=== PATIENT | female | born 1935 | race Caucasian/White ===

== ENCOUNTER 2016-03-24 12:09 | Outpatient (CLI) | payer MEDICARE, OTHER ==
[~2016-03-24] VITALS: Ht 167.6 cm; Wt 54.5 kg
[~2016-03-24 12:09] MED LIST: CO Q-10100 MG PO; COREG 3.1253.125 MG PO; DEXILANT30 MG PO; ECOTRIN325 MG PO; ESTRACE2 MG PO; MYRBETRIQ50 MG PO; NAMENDA10 MG PO; PLAVIX75 MG PO; PRAVACHOL20 MG PO; REQUIP3 MG PO; SYNTHROID25 MCG PO; THERMOTABS 1 GM1 GM PO
[2016-03-24 13:17] VITALS: BP 130/68; Ht 167.6 cm; Wt 54.5 kg
--- NOTE | 2016-03-24 13:19 | NUR ---
1310- 60MG OF PROLIA GIVEN IN LEFT ARM LOT#[id number] EXP:02/06 PT TOLERATED WELL. PT DENIES ANY NEEDS OR CONCERNS AT THIS TIME. PT DISCHARGED HOME IN STABLE CONDITION @ 1320 WITHOUT ANY DISTRESS
== END 2016-03-24 13:20 | disposition home or self-care (01) ==
LOC: D.OPS 12:09
DX: M81.0 Age-related osteoporosis without current pathological fracture (principal)

== ENCOUNTER 2016-08-10 12:56 | Inpatient (IN) | payer MEDICARE, OTHER ==
[~2016-08-10] VITALS: Ht 167.6 cm; Wt 59.8 kg
--- NOTE | 2016-08-10 13:22 | NUR ---
1312- RECEIVED PT VIA WHEELCHAIR. WILL ADMIT PT AND CONTINUE TO MONITOR.
[2016-08-10] MEDS ORDERED: SYNTHROID50 MCG PO (13:37)
[2016-08-10] MEDS ORDERED: LISINOPRIL2.5 MG PO (13:38)
[2016-08-10] MEDS ORDERED: CO Q-10100 MG PO (13:38)
[2016-08-10 13:39] VITALS: BP 98/67
[2016-08-10 16:00] VITALS: BP 105/71
--- NOTE | 2016-08-10 16:36 | NUR ---
CALLED DR. WILBURN'S OFFICE TO INFORM HIM OF PT HAVING DIARRHEA WITH STRONG ODOR. AWAITNG DR. WILBURN TO ANSWER.
--- NOTE | 2016-08-10 16:46 | NUR ---
AWAITED FOR DR. WILBURN AND DR. WILBURN'S NURSE WITH NO ANSWER. WILL ATTEMPT TO CALL BACK.
--- NOTE | 2016-08-10 16:55 | NUR ---
CALLED DR. WILBURN OFFICE AND SPOKE WITH DR. WILBURN. INFORMED HIM THAT PT IS HAVING DIARRHEA WITH STRONG ODOR. DR. WILBURN GAVE TELEPHONE ORDERES TO PUT IN FOR CDT. WILL DO ORDERED AND CONTINUE TO ALBIN.
--- NOTE | 2016-08-10 17:44 | NUR ---
PT IS CURRENTLY SITTING UP IN BED READING BOOK. DENIES ANY NEED AT CURRENT TIME. WILL CONTINUE TO MONITOR.
--- NOTE | 2016-08-10 18:14 | NUR ---
PT IS CURRENTLY SITTING UP IN BED WITH EYES OPEN RESTING. DAUGHTER AND GUEST JUST GO TO UNIT. NO NEED AT CURRENT TIME. WILL CONTINUE TO MONITOR.
[2016-08-10 20:00] VITALS: BP 105/67
--- NOTE | 2016-08-10 20:48 | NUR ---
HS MEDS GIVEN, DENIES PAIN OR NEEDS, BED LOW, CL IN REACH.
--- NOTE | 2016-08-10 23:24 | NUR ---
RESTING WITH EYES CLOSED, RESPERATIONS EVEN, NO S/S DISTRESS NOTED.
[2016-08-11] VITALS: BP 108/65
[2016-08-11 04:00] VITALS: BP 110/69
[2016-08-11 05:11] LABS: BASOPHILS 0.1 % (0-2); EOSINOPHILS 0.7 % (0-7); HEMATOCRIT 34.7 % (36.0-48.0); IMMATURE GRANULOCYTES 0.4 % (0-5); LYMPHOCYTES 14.7 % (15-50); MCH 28.3 pg (26.0-34.0); MCHC 34.6 g/dL (31.0-37.0); MCV 81.8 fL (80.0-100.0); MEAN PLATELET VOLUME 9.2 fL (7.4-10.4); MONOCYTES 6.1 % (2-11); PLATELET COUNT 205 10x3/uL (130-400); RBC 4.24 10x6/uL (4.00-5.40); RDW 14.3 % (11.5-14.5); WBC 7.2 10x3/uL (4.8-10.8)
[2016-08-11 05:44] LABS: ANION GAP 10.5 mmol/L (8-16); CARBON DIOXIDE 23.6 mmol/L (21.0-32.0); POTASSIUM - SERUM 3.1 mmol/L (3.5-5.1)
[2016-08-11 05:46] LABS: CALCIUM 6.9 mg/dL (8.5-10.1)
--- NOTE | 2016-08-11 07:22 | NUR ---
AM ROUNDING DONE WITH NEW IV FLUIDS TO BE HUNG, INFUSING TO LEFT AC AT 150 CC/HR. PATIENT STATES THAT SHE IS HUNGRY AND WOULD LIKE TO TRY SCAMBLED EGGS. ON ROOM AIR, BSC AT BEDSIDE. ON EP, POTASSIUM IS 3.1 THIS AM, WILL COVER WITH REPLACEMENTS.
[2016-08-11 08:00] VITALS: BP 120/77
[2016-08-11 12:17] VITALS: BP 101/63
[2016-08-11 13:06] VITALS: Ht 167.6 cm; Wt 59.8 kg
--- NOTE | 2016-08-11 14:34 | NUR ---
POTASSIUM RE-CHECK IS 3.7
[2016-08-11 16:36] VITALS: BP 114/71
--- NOTE | 2016-08-11 17:22 | NUR ---
SCD'S ON BILATERAL LE
--- NOTE | 2016-08-11 18:11 | NUR ---
IV IS INFILTRATING. WILL ATTEMPT AT RE-SITE.
--- NOTE | 2016-08-11 18:41 | NUR ---
IV RE-SITE TO RIGHT ARM WITH 22G X 2 STICKS PER MARIBELL FROM OUTPATIENT.
[2016-08-11 19:00] VITALS: BP 113/89
--- NOTE | 2016-08-11 19:43 | NUR ---
ASSESSMENT HOWIE A&O, NATANAEL BLACK ON RA. IV TO LEFT FOREARM WITH WITH NS INFSING AT 75 CC/HR. PT STATES THAT TODAY SHE FEELS WORSE THAN SHE DID YESTERDAY, BUT DENIES PAIN OR NEEDS, BED LOW, CL IN REACH.
--- NOTE | 2016-08-11 21:50 | HP ---
PATIENT: MARILU DOBBINS MEDICAL RECORD: [id number] ACCOUNT: [id number] LOCATION:[address] : 33 ADMISSION DATE: 08/10/16 HISTORY AND PHYSICAL EXAMINATION REASON FOR ADMISSION: Fever to 102, malaise. HISTORY OF PRESENT ILLNESS: The patient is an 80-year-old female with history of mild dementia and hypertension. She presented to the office approximately 5 days ago with complaints of fever to 102 and urinary urgency. She was seen by Dr. Tripp. At that time, her CBC was normal, but her urine showed pyuria of mild degree. She was placed on Cipro empirically. Her culture returned later this week that showed her to have E. coli greater than 100,000 colony count with multiple resistance. She was switched to Macrodantin, but continued to have fever at 102, I asked her to come to the office this morning. Her daughter states she has had a dry cough, temperature is 102.4 this morning and states she does not feel well. She denies abdominal pain. In the office, her white count was elevated and she appeared mildly prerenal and for this reason and due to multiple drug allergies and drug resistance on her urine culture. She is admitted for IV antibiotics and fluid support. 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 PAST SURGICAL HISTORY: She had lumbar fusion with partial removal of her metal due to MRSA, hip replacement on the left and right, hysterectomy. She also had a bladder mesh placed several years ago for recurrent Klebsiella UTI. SOCIAL HISTORY: Nonsmoker, nondrinker. She is . Her daughter lives with her and helps care for her. ALLERGIES: CLINDAMYCIN, MACRODANTIN, ROCEPHIN, SULFONAMIDES, AND VANCOMYCIN. REVIEW OF SYSTEMS: GENERAL: Fever to 102, off and on for the last 3-4 days. She has had malaise and poor appetite. HEENT: No recent visual change, sinus congestion, or sore throat. RESPIRATORY: Intermittent cough, nonproductive, not short of breath. CARDIAC: No exertional chest pain, claudication, edema and a recent negative cardiac catheterization in 2015. GASTROINTESTINAL: Intermittent dyspepsia, no change in stools, blood per rectum, or diarrhea. GENITOURINARY: She has trouble with urinary incontinence. No recent dysuria. GYNECOLOGIC: No vaginal bleeding. PSYCHIATRIC: Admits to chronically depressed mood and poor memory. MUSCULOSKELETAL: Chronic lumbago without sciatica. PHYSICAL EXAMINATION: GENERAL: The patient is oriented and alert, and obviously fatigued. VITAL SIGNS: Her height is 5 feet 6 inches, weight is 128 pounds, BMI is 20.7, temperature 98.2 Fahrenheit after Tylenol, blood pressure 104/60 and heart rate is 80 and regular. HISTORY AND PHYSICAL [id number] MARILU DOBBINS HEENT: Normocephalic. Eyes are clear. Mucous membranes are dry in the oropharynx. NECK: Supple. CHEST: Faint crackles on forced expiration. No wheeze. HEART: Regular rate. ABDOMEN: Soft, nontender, organomegaly. PELVIC: Deferred. EXTREMITIES: No CC&E. NEUROLOGIC: Oriented to person and place, but not time. Motor deficits, she is walking with her rolling walker as per usual, with slight chronic balance instability. INTEGUMENT: No rash appreciated. LABORATORY DATA: White count is 14.48 thousand, with 92% polys, H&H is 14 and 41.2 respectively. BUN and creatinine are elevated at 22 and 1.47. Sodium was low at 131. Glucose is 104. Chest x-ray in the office shows question of small white patchy density in the right lower lobe and left lower lobe not noted previously. Urine culture as mentioned previously E. coli with multiple resistance. ASSESSMENT: 1. Febrile illness, possible urosepsis. 2. Abnormal chest x-ray. 3. Hyponatremia. 4. Mild dehydration. 5. Leukocytosis. 6. Restless leg syndrome. 7. Essential hypertension. 8. Postmenopausal. 9. Gastroesophageal reflux disease. 10. History of transient ischemic attack. 11. Urinary incontinence. 12. Osteoporosis, on Prolia. 13. History of remote coronary artery disease, clinically asymptomatic. 14. Hyperlipidemia. PLAN: The patient will be admitted. Culture urine and blood. Place on IV Zosyn. Further workup pending clinical course. TRANSINT:[id number] Voice Confirmation ID: [id number] DOCUMENT ID: [id number] FABRICE WILBURN MD at 2150 CC: [id number] DICTATION DATE: 08/10/16 1346 THEATER TEACHER: 08/10/16 1659 ADM IN [place] [id number] [place] [id number]
[2016-08-12] VITALS: BP 117/73
--- NOTE | 2016-08-12 01:00 | NUR ---
CALL LIGHT IN REACH, WILL CONTINUE WITH PLAN OF CARE.
[2016-08-12 05:49] LABS: BASOPHILS 0.2 % (0-2); EOSINOPHILS 1.4 % (0-7); HEMATOCRIT 32.5 % (36.0-48.0); HEMOGLOBIN 11.1 g/dL (12-16); IMMATURE GRANULOCYTES 0.2 % (0-5); LYMPHOCYTES 27.3 % (15-50); MCH 27.8 pg (26.0-34.0); MCHC 34.2 g/dL (31.0-37.0); MCV 81.5 fL (80.0-100.0); MEAN PLATELET VOLUME 9.6 fL (7.4-10.4); MONOCYTES 11.1 % (2-11); NEUTROPHILS 59.8 % (40-80); PLATELET COUNT 195 10x3/uL (130-400); RBC 3.99 10x6/uL (4.00-5.40); RDW 14.4 % (11.5-14.5); WBC 5.8 10x3/uL (4.8-10.8)
[2016-08-12 06:03] LABS: CARBON DIOXIDE 20.4 mmol/L (21.0-32.0); CHLORIDE - SERUM 103 mmol/L (98-107); GLUCOSE 97 mg/dL (74-106); POTASSIUM - SERUM 3.3 mmol/L (3.5-5.1); SODIUM 134 mmol/L (136-145)
[2016-08-12 06:04] LABS: CALC OSMOLALITY 265 mosm/kg (275-300); CREATININE - SERUM 0.7 mg/dL (0.6-1.3); UREA NITROGEN 7 mg/dL (7-18); eGFR NON AFRICAN AMERICAN 85 mL/min (90-120)
[2016-08-12 06:06] LABS: CALCIUM 6.6 mg/dL (8.5-10.1)
[2016-08-12 08:11] VITALS: BP 121/71
--- NOTE | 2016-08-12 11:42 | NUR ---
RE-DRAW OF POTASSIUM IS 3.5.
[2016-08-12 12:08] VITALS: BP 134/77
[2016-08-12 15:17] VITALS: BP 118/73
--- NOTE | 2016-08-12 18:59 | NUR ---
PT RECEIVED SITTING UP IN BED AAOX3 READING BOOK AT THIS TIME. ASSESSMENT COMPLETED PER FLOW SHEET. PT DENIES NEEDS. BED LOW. PHONE AND CALL LIGHT IN REACH. SRX2.
[2016-08-12 19:00] VITALS: BP 147/83
--- NOTE | 2016-08-12 20:37 | NUR ---
PM MEDS GIVEN AT THIS TIME. PT DENIES NEEDS. BED LOW. PHONE AND CALL LIGHT IN REACH. SRX2.
--- NOTE | 2016-08-12 23:28 | NUR ---
PT RESTING QUIETLY AT THIS TIME WITH EYES CLOSED. RESPIRATIONS EVEN, NON-LABROED. NO ACUTE DISTRESS NOTED AT THIS TIME. BED LOW. PHONE AND CALL LIGHT IN REACH. SRX2.
[2016-08-13] VITALS: BP 139/57
--- NOTE | 2016-08-13 00:52 | NUR ---
ZOSYN IVPB INITIATED AT THIS TIME. PT RESTING QUIETLY WITH EYES CLOSED. RESPIRATIONS EVEN, NON-LABORED. NO ACUTE DISTRESS NOTED AT THIS TIME. BED LOW. PHONE AND CALL LIGHT IN REACH. SRX2.
--- NOTE | 2016-08-13 02:10 | NUR ---
PT RESTING QUIETLY AT THIS TIME WITH EYES CLOSED. RESPIRATIONS EVEN, NON-LABORED. NO ACUTE DISTRESS NOTED AT THIS TIME. BED LOW. PHONE AND CALL LIGHT IN REACH. SRX2.
[2016-08-13 05:21] LABS: ANION GAP 10.9 mmol/L (8-16); CALCIUM 7.3 mg/dL (8.5-10.1); CARBON DIOXIDE 23.7 mmol/L (21.0-32.0); CREATININE - SERUM 0.8 mg/dL (0.6-1.3); POTASSIUM - SERUM 3.6 mmol/L (3.5-5.1)
--- NOTE | 2016-08-13 05:23 | NUR ---
PT SITTING UP IN BED AAOX3 AT THIS TIME. REQUESTS ICE WATER, DENIES OTHER NEEDS. BED LOW. PHONE AND CALL LIGHT IN REACH. SRX2.
--- NOTE | 2016-08-13 07:48 | NUR ---
PT RESTING IN BED READING A BOOK, DENIES NEEDS AT THIS TIME. BED LOW. CL IN REACH.
[2016-08-13 08:00] VITALS: BP 147/81
[2016-08-13] MEDS ORDERED: MACRODANTIN100 MG PO (08:30)
--- NOTE | 2016-08-13 08:57 | NUR ---
PT AM MEDS ADMINISTERED. PT ASSISTED TO BR. PT DENIES FURHTER NEEDS.
--- NOTE | 2016-08-13 11:02 | NUR ---
PT IV INFILTRATED. PT IV DC'D, CATHETER INTACT.
--- NOTE | 2016-08-13 13:54 | NUR ---
PT TAKEN DOWN TO LOBBY VIA WHEELCHAIR WITH HOSPITAL STAFF. PT FAMILY WAITING TO TAKE PT HOME.
--- NOTE | 2016-08-14 10:57 | DS ---
PATIENT:MARILU DOBBINS :33 MEDICAL RECORD: [id number] DISCHARGE SUMMARY ADMISSION DATE: 08/10/16 DISCHARGE DATE: 08/13/16 DISCHARGE DIAGNOSES: 1. Resistant Escherichia coli urinary tract infection. 2. Febrile illness, sepsis unproven. 3. Leukocytosis. 4. Hyponatremia, diarrhea, dehydration, restless leg syndrome and essential hypertension. HOSPITAL COURSE: An 80-year-old female, who was noted a week to have E. coli UTI. She had fever of 102 as well. She was placed on oral Cipro by Dr. Tripp. The culture returned showing it was resistant. It was sensitive to Macrodantin that was started, but she developed more fever, nausea and had poor intake. First came to my office on day admission with 102 fever and appeared clinically dehydrated. Because of multiple drug allergies and drug resistance, she was admitted to the hospital for IV fluids and IV antibiotics. Her sodium was low at 131 that was corrected with fluid restriction. Followup chest x-ray was clear. The patient has gradually improved on IV antibiotics and Zosyn. She developed some diarrhea, but CDT was negative. Discharged today, her white count is 5800, H&H is 11.1 and 32.5 with normal diff. Sodium is up to 135, potassium is 3.6, BUN and creatinine are down to 10.9 and 4.0 respectively. The patient will be discharged today in improved condition. DIET: Will be low cholesterol as tolerated. DISCHARGE MEDICATIONS: Macrobid 1 p.o. b.i.d. for 2 days and discontinue, Plavix 75 mg p.o. daily, Coreg 3.125 mg p.o. b.i.d., lisinopril 2.5 mg daily, pravastatin 20 mg with evening meal, aspirin 81 mg daily, Namenda 10 mg p.o. b.i.d., Requip 3 mg p.o. at bedtime, salt tablet 1 gram p.o. daily, Dexilant 30 mg p.o. daily, Estrace 3 mg p.o. every third day, Synthroid 50 mcg p.o. q.a.m. a.c. breakfast, Myrbetriq 50 mg ER tablet p.o. daily and Coenzyme Q10 100 mg p.o. daily. ACTIVITY: Progress as tolerated. FOLLOWUP: Return to clinic to see me in the office next Monday with a UA and BMP. TRANSINT:[id number] Voice Confirmation ID: [id number] DOCUMENT ID: [id number] FABRICE WILBURN MD at 1057 CC: [id number] DICTATION DATE: 08/13/16828 IT OPERATIONS ANALYST: 08/13/16 1017 DIS IN 08/13/16 [place] [id number] [place] [id number]
== END 2016-08-13 13:55 | disposition home or self-care (01) | DRG 690 ==
LOC: D.M2 12:56
PROVIDERS: ADMIT Family Medicine
DX: N39.0 Urinary tract infection, site not specified (principal); E87.1 Hypo-osmolality and hyponatremia; F03.90 Unspecified dementia, unspecified severity, without behavioral disturbance, psychotic disturbance, mood disturbance, and anxiety; G25.81 Restless legs syndrome; I08.1 Rheumatic disorders of both mitral and tricuspid valves; I25.10 Atherosclerotic heart disease of native coronary artery without angina pectoris; E78.5 Hyperlipidemia, unspecified; I95.9 Hypotension, unspecified; N95.9 Unspecified menopausal and perimenopausal disorder; M81.0 Age-related osteoporosis without current pathological fracture; E86.0 Dehydration; R91.8 Other nonspecific abnormal finding of lung field; I10 Essential (primary) hypertension; K21.9 Gastro-esophageal reflux disease without esophagitis; N28.9 Disorder of kidney and ureter, unspecified; R19.7 Diarrhea, unspecified; B96.20 Unspecified Escherichia coli [E. coli] as the cause of diseases classified elsewhere; Z86.73 Personal history of transient ischemic attack (TIA), and cerebral infarction without residual deficits

== ENCOUNTER 2016-09-29 10:07 | Outpatient (CLI) | payer MEDICARE, OTHER ==
[~2016-09-29] VITALS: Ht 167.6 cm; Wt 56.8 kg
[~2016-09-29 10:07] MED LIST changes: +LISINOPRIL2.5 MG PO; +MACRODANTIN100 MG PO; +SYNTHROID50 MCG PO
[2016-09-29 10:57] VITALS: BP 147/67; Ht 167.6 cm; Wt 56.8 kg
== END 2016-09-29 11:05 | disposition home or self-care (01) ==
LOC: D.OPS 10:07
DX: M81.0 Age-related osteoporosis without current pathological fracture (principal)

== ENCOUNTER → 2016-10-07 08:29 | Outpatient (CLI) | payer MEDICARE, OTHER ==
[2016-09-29 10:57] VITALS: BMI 20.2
== END | disposition home or self-care (01) ==
LOC: D.RAD 08:29
DX: K59.00 Constipation, unspecified (principal); R10.31 Right lower quadrant pain

== ENCOUNTER → 2017-02-02 16:42 | Outpatient (CLI) | payer MEDICARE, OTHER ==
[2016-09-29 10:57] VITALS: BMI 20.2
== END | disposition home or self-care (01) ==
LOC: D.MAMMO 14:15
DX: Z12.31 Encounter for screening mammogram for malignant neoplasm of breast (principal)

== ENCOUNTER 2017-07-27 12:53 | Outpatient (CLI) | payer MEDICARE, OTHER ==
[~2017-07-27] VITALS: Ht 167.6 cm; Wt 56.8 kg
[2017-07-27 13:35] VITALS: BP 115/70; Ht 167.6 cm; Wt 56.8 kg
== END 2017-07-27 13:54 | disposition home or self-care (01) ==
LOC: D.OPS 12:53
DX: M81.0 Age-related osteoporosis without current pathological fracture (principal)

== ENCOUNTER → 2018-03-09 12:54 | Outpatient (CLI) | payer MEDICARE, OTHER ==
[2017-07-27 13:35] VITALS: BMI 20.2
== END | disposition home or self-care (01) ==
LOC: D.MRI 12:54
DX: M54.5 Low back pain (principal)

== ENCOUNTER 2018-03-13 12:38 | Outpatient (CLI) | payer MEDICARE, OTHER ==
[~2018-03-13] VITALS: Ht 167.6 cm; Wt 56.8 kg
[2018-03-13 13:36] VITALS: Ht 167.6 cm; Wt 56.8 kg
== END 2018-03-13 13:38 | disposition home or self-care (01) ==
LOC: D.OPS 12:38
DX: M81.0 Age-related osteoporosis without current pathological fracture (principal); Z01.812 Encounter for preprocedural laboratory examination

== ENCOUNTER → 2018-05-30 08:27 | Outpatient (CLI) | payer MEDICARE, OTHER | END | disposition home or self-care (01) | LOC: D.MRI 08:27 | DX: H53.462 Homonymous bilateral field defects, left side (principal) ==

== ENCOUNTER → 2018-06-20 13:00 | Outpatient (CLI) | payer MEDICARE, OTHER ==
[2018-03-13 13:36] VITALS: BMI 20.2
== END | disposition home or self-care (01) ==
LOC: D.CT 13:00
PROVIDERS: ATTEND Family Medicine
DX: R26.0 Ataxic gait (principal); G46.4 Cerebellar stroke syndrome

== ENCOUNTER → 2018-06-28 09:54 | Outpatient (CLI) | payer MEDICARE, OTHER ==
[2018-03-13 13:36] VITALS: BMI 20.2
== END | disposition home or self-care (01) ==
LOC: D.CT 09:54
PROVIDERS: ATTEND Family Medicine
DX: R91.1 Solitary pulmonary nodule (principal)

== ENCOUNTER 2018-08-02 12:31 | Outpatient (CLI) | payer MEDICARE, OTHER ==
[~2018-08-02] VITALS: Ht 167.6 cm; Wt 56.8 kg
[2018-08-02 13:15] VITALS: BP 133/80; Ht 167.6 cm; Wt 56.8 kg
== END 2018-08-02 13:30 | disposition home or self-care (01) ==
LOC: D.OPS 12:31
PROVIDERS: ATTEND Family Medicine
DX: M18.0 Bilateral primary osteoarthritis of first carpometacarpal joints (principal)

== ENCOUNTER → 2018-10-15 11:12 | Outpatient (CLI) | payer MEDICARE, OTHER ==
[2018-08-02 13:15] VITALS: BMI 20.2
== END | disposition home or self-care (01) ==
LOC: D.CT 11:12
PROVIDERS: ATTEND Family Medicine
DX: R91.1 Solitary pulmonary nodule (principal)

== ENCOUNTER 2018-11-22 09:58 | Emergency (ER) | payer MEDICARE, OTHER ==
[~2018-11-22] VITALS: Ht 167.6 cm; Wt 56.8 kg
[2018-11-22 10:07] VITALS: Ht 167.6 cm; Wt 56.8 kg
[2018-11-22 10:38] LABS: BASOPHILS 0.7 % (0-2); EOSINOPHILS 6.1 % (0-7); HEMATOCRIT 40.5 % (36.0-48.0); HEMOGLOBIN 13.4 g/dL (12-16); LYMPHOCYTES 32.7 % (15-50); MCH 28.9 pg (26.0-34.0); MCHC 33.1 g/dL (31.0-37.0); MCV 87.5 fL (80.0-100.0); MEAN PLATELET VOLUME 10.8 fL (7.4-10.4); MONOCYTES 10.1 % (2-11); NEUTROPHILS 50.4 % (40-80); PLATELET COUNT 198 10x3/uL (130-400); RBC 4.63 10x6/uL (4.00-5.40); RDW 14.1 % (11.5-14.5); WBC 6.1 10x3/uL (4.8-10.8)
[2018-11-22 10:57] LABS: ALBUMIN 3.7 g/dL (3.4-5.0); ALKALINE PHOSPHATASE 70 U/L (46-116); ALT (SGPT) 25 U/L (10-68); BILIRUBIN - TOTAL 0.54 mg/dL (0.2-1.3); CALC OSMOLALITY 281 mosm/kg (275-300); CALCIUM 8.6 mg/dL (8.5-10.1); CARBON DIOXIDE 26.9 mmol/L (21.0-32.0); CHLORIDE - SERUM 105 mmol/L (98-107); CREATININE - SERUM 0.8 mg/dL (0.6-1.3); GLUCOSE 93 mg/dL (74-106); POTASSIUM - SERUM 4.1 mmol/L (3.5-5.1); PROTEIN - SERUM 6.2 g/dL (6.4-8.2); SODIUM 141 mmol/L (136-145); UREA NITROGEN 14 mg/dL (7-18); eGFR NON AFRICAN AMERICAN 72 mL/min (90-120)
[2018-11-22 10:58] LABS: AMYLASE - SERUM 54 U/L (25-115); LIPASE 138 U/L (73-393); TROPONIN-I < 0.017 ng/mL (0.000-0.060)
[2018-11-22 11:01] LABS: APPEARANCE CLEAR (CLEAR); BILIRUBIN NEGATIVE (NEGATIVE); COLOR YELLOW (YELLOW); GLUCOSE NEGATIVE (NEGATIVE); KETONE NEGATIVE (NEGATIVE); NITRITE POSITIVE (NEGATIVE); PROTEIN NEGATIVE (NEGATIVE); UROBILINOGEN NORMAL (NORMAL)
[2018-11-22 11:08] LABS: BACTERIA MANY /hpf (NEGATIVE); EPITHELIAL CELLS 0-5 /hpf (0-5); RED CELLS - URINE NONE SEEN /hpf (0-5); WHITE CELLS - URINE 0-5 /hpf (NEGATIVE)
[2018-11-22 11:48] LABS: CKMB 2.5 U/L (0.0-3.6); CREATINE KINASE 35 UL (21-215)
[2018-11-22 13:25] VITALS: BP 168/90
== END 2018-11-22 13:26 | disposition home or self-care (01) ==
LOC: D.ER 09:58
PROVIDERS: Emergency Medicine
DX: R07.9 Chest pain, unspecified (principal); R11.0 Nausea; N39.0 Urinary tract infection, site not specified

== ENCOUNTER 2019-02-07 13:45 | Outpatient (CLI) | payer MEDICARE, OTHER ==
[~2019-02-07] VITALS: Ht 167.6 cm; Wt 56.8 kg
[2019-02-07 14:09] VITALS: BP 156/88; Ht 167.6 cm; Wt 56.8 kg
== END 2019-02-07 14:23 | disposition home or self-care (01) ==
LOC: D.OPS 13:45
PROVIDERS: ATTEND Family Medicine
DX: M81.0 Age-related osteoporosis without current pathological fracture (principal)

== ENCOUNTER → 2019-03-18 08:43 | Outpatient (CLI) | payer MEDICARE, OTHER ==
[2019-02-07 14:09] VITALS: BMI 20.2
[~2019-03-18 08:43] MED LIST changes: +CHRONULAC30 ML PO; +Levaquin PO; +MIRALAX17 GM PO
== END | disposition home or self-care (01) ==
LOC: D.CT 08:30
PROVIDERS: ATTEND Family Medicine
DX: R10.9 Unspecified abdominal pain (principal)

== ENCOUNTER 2019-03-22 01:50 | Inpatient (IN) | payer MEDICARE, OTHER ==
[2019-03-22] VITALS (7 sets, daily range): BP systolic 121–146; BP diastolic 67–86; Ht 167.6 cm; Wt 61.1 kg
[~2019-03-22] VITALS: Ht 167.6 cm; Wt 61.1 kg
--- NOTE | ~2019-03-22 | EC ---
PATIENT:ELLEN DOBBINS DATE OF SERVICE: 03/22/19 SEX: F MEDICAL RECORD: [id number] DATE OF : 33 LOCATION:D.M2 D.213 AGE OF PATIENT: 83 ADMISSION DATE: 03/22/19 REFERRING PHYSICIAN: INTERPRETING PHYSICIAN: PEPE WHATLEY MD ECHOCARDIOGRAM REPORT ECHO CHARGES 4 ECHO COMPLETE Date: 03/22/19 CLINICAL DIAGNOSIS: CAD, TIA ECHOCARDIOGRAPHIC MEASUREMENTS (adult normal given) AC root (d.<3.7cm) 1.8 cm LV Septum d (<1.2 cm> 0.9 cm Valve Excursion 0.9 cm LV Septum (systole) 1.0 cm Left Atria (s.<4.0cm> 3.2 cm LVPW d(<1.2cm) 1.0 cm RV (d.<2.3cm) 2.2 cm LVPW (sytole) 1.2 cm LV diastole(<5.6CM) 3.4 cm MV E-F(>70mm/sec) cm LV systole 2.8 cm LVOT Diameter 1.7 cm MV exc.(>10mm) cm Est.ejection fraction (50-75%) % DOPPLER: LVIT cm/sec A 88 cm/sec E 42 cm/sec LA cm/sec RVSP 19.5 mmHg LVOT 140 cm/sec AOP1/2T m/s Asc. Ao 140 cm/sec RVOT 58 cm/sec RA cm/sec PA 76 cm/sec AV Gradient Peak 7.8 mmHg AV Mean 4.8 mmHg AV Area 2.1 cm MV Gradient Peak 4.7 mmHg MV Mean 1.5 mmHg MV Area cm COMMENTS: Tellers Supervisor: Shila PALMER Manager Biostatistics: 1 Dr. Whatley TAPE# PACS Pericardial Effusion N DATE OF SERVICE: 03/22/2019 FINDINGS: 1. Left ventricular chamber size is within normal limits. Left ventricular systolic function is normal at 55%. 2. Left atrium, right atrium, and right ventricular chamber sizes are within normal limits. 3. Valvular structures have normal structure and motion. 4. Doppler interrogation reveals mild mitral regurgitation only. No other valvular insufficiency or stenosis. ECHOCARDIOGRAM REPORT [id number] ELLEN DOBBINS 5. No evidence of pericardial effusion or left ventricular thrombus. TRANSINT:[id number] Voice Confirmation ID: [id number] DOCUMENT ID: [id number] PEPE WHATLEY MD CC: [id number] DICTATION DATE: 03/22/19 1607 EVAPORATOR SUPERVISOR: 03/22/19 2329 ADM IN [place] [id number] [place] [id number]
[~2019-03-22 01:50] MED LIST changes: -CHRONULAC30 ML PO; -Levaquin PO; -MIRALAX17 GM PO
[2019-03-22 02:22] LABS: BASOPHILS 0.5 % (0-2); EOSINOPHILS 4.7 % (0-7); HEMATOCRIT 40.3 % (36.0-48.0); HEMOGLOBIN 12.8 g/dL (12-16); IMMATURE GRANULOCYTES 0.2 % (0-5); LYMPHOCYTES 36.1 % (15-50); MCH 28.2 pg (26.0-34.0); MCHC 31.8 g/dL (31.0-37.0); MCV 88.8 fL (80.0-100.0); MEAN PLATELET VOLUME 10.6 fL (7.4-10.4); MONOCYTES 14.1 % (2-11); NEUTROPHILS 44.4 % (40-80); PLATELET COUNT 187 10x3/uL (130-400); RBC 4.54 10x6/uL (4.00-5.40); RDW 14.2 % (11.5-14.5); WBC 6.1 10x3/uL (4.8-10.8)
[2019-03-22 02:31] LABS: ANION GAP 10.5 mmol/L (8-16); CALCIUM 8.8 mg/dL (8.5-10.1); CARBON DIOXIDE 27.7 mmol/L (21.0-32.0); POTASSIUM - SERUM 4.2 mmol/L (3.5-5.1)
[2019-03-22 02:36] LABS: ALBUMIN 3.5 g/dL (3.4-5.0); BILIRUBIN - TOTAL 0.27 mg/dL (0.2-1.3); PROTEIN - SERUM 6.5 g/dL (6.4-8.2)
--- NOTE | 2019-03-22 03:21 | NUR ---
PT AMBULATED TO RESTROOM WITH ASSIST FROM NURSE AT THIS TIME.
[2019-03-22 03:43] LABS: APPEARANCE CLEAR (CLEAR); BILIRUBIN NEGATIVE (NEGATIVE); COLOR YELLOW (YELLOW); GLUCOSE NEGATIVE (NEGATIVE); KETONE NEGATIVE (NEGATIVE); NITRITE POSITIVE (NEGATIVE); PROTEIN NEGATIVE (NEGATIVE); UROBILINOGEN NORMAL (NORMAL)
[2019-03-22 03:45] LABS: BACTERIA MANY /hpf (NEGATIVE); EPITHELIAL CELLS 0-5 /hpf (0-5); RED CELLS - URINE NONE SEEN /hpf (0-5); WHITE CELLS - URINE 0-5 /hpf (NEGATIVE)
--- NOTE | 2019-03-22 06:50 | NUR ---
PT SITTING UP ON SIDE OF BED SMILNG AND TALKING NO SIGNS OR SYMPTOMS OF DISTRESS NOTED. RESPIRATIONS EVEN AND UNLABORED. NO COMPLAINTS AT THIS TIME. PT ENCOURAGED TO CALL FOR HELP WHEN NEEDED. CALL LIGHT WITHIN REACH AND BED IS IN LOWEST POSITION. WILL CONTINUE TO MONITOR.
--- NOTE | 2019-03-22 09:21 | NUR ---
PT LEAVING WITH MRI TEAM AT THIS TIME. PT AMBULATED TO WHEELCHAIR WITH SLIGHT WEAKNESS NO ASSISTANCE NEEDED.
--- NOTE | 2019-03-22 10:30 | NUR ---
PT BACK IN HER ROOM SITTING UP IN BED RESTING QUIETLY WITH FAMILY AT BEDSIDE. ADMISSION WORKUP COMPLETED. PT BACK ON TELEMETRY RUNNING NSR. NO CURRENT NEEDS AT THIS TIME. CL IN REACH, BED IN LOWEST, SIDE RAILS X2. WILL CTM.
--- NOTE | 2019-03-22 16:00 | NUR ---
PT AMBULATORY AND DOESNT WANT TO WEAR SCDS.
--- NOTE | 2019-03-22 19:00 | NUR ---
REPORT RECEIVED, BEDSIDE SHIFT REPORT COMPLETE. PT A&O X3, RR EVEN AND UNLABORED ON RA. NO S/SX OF DISTRESS OBSERVED. DENIES NEEDS AT THIS TIME. SR X2, CALL LIGHT IN REACH. WILL CTM.
[2019-03-23 00:21] VITALS: BP 118/71
--- NOTE | 2019-03-23 04:40 | NUR ---
PT AMBULATORY W/O ASSISTANCE, REFUSES SCDs
[2019-03-23 05:29] VITALS: BP 114/68
--- NOTE | 2019-03-23 07:22 | NUR ---
PT RESTING, RR EVEN AND UNLABORED ON RA. NO DISTRESS NOTED. BED INJ LOWEST POSITION.CALL LIGHT WITHIN REACH. WILL CONTINUE TO MONITOR.
[2019-03-23] MEDS ORDERED: Levaquin PO (08:53)
[2019-03-23] MEDS ORDERED: MIRALAX17 GM PO (08:54)
[2019-03-23] MEDS ORDERED: CHRONULAC30 ML PO (08:55)
--- NOTE | 2019-03-23 08:58 | HP ---
PATIENT: ELLEN DOBBINS MEDICAL RECORD: [id number] ACCOUNT: [id number] LOCATION:[facility].2136 : 33 ADMISSION DATE: 03/22/19 PCP: FABRICE WILBURN MD HISTORY AND PHYSICAL EXAMINATION REASON FOR ADMISSION: Abrupt onset of left arm weakness. HISTORY OF PRESENT ILLNESS: The patient is an 83-year-old female with history of previous right MCA and right posterior circulation CVA with workup in May of last year with negative MRA of the cerebral vessels and MRI showing old right frontoparietal stroke and left occipital stroke. The patient was placed on Plavix and aspirin and is followed by Dr. Last, neurologist, at [facility]. She had been doing pretty well except recently she has had chronic abdominal pain thought due to constipation. She states that she was going to bed last night about midnight and was sitting in her bathroom with her arms on her sink to brush her teeth and left arm became flaccid and began shaking. She had trouble lifting it. She had no other neurologic symptoms. It slowly improved and her daughter brought her to the Emergency Room where her neurological exam was stable. She denies headache, new visual changes, palpitations. She has seen a butter fat tester, Dr. Plasencia recently, but has not had a recent echo. 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 Peripheral neuropathy, idiopathic with gait instability, remote myocardial infarction. PAST SURGICAL HISTORY: Lumbar fusion with partial removal of hardware due to methicillin-resistant Staphylococcus aureus, left and right hip replacements, hysterectomy, bladder mesh placed several years ago for recurrent Klebsiella urinary tract infection. She had negative breast biopsy, had bilateral cataract surgeries in 2012, remote bladder suspension. SOCIAL HISTORY: Nonsmoker, nondrinker. Is , lives with her daughter who helps care for her. She ambulates with a rolling walker and can perform her ADLs. ALLERGIES: VANCOMYCIN, SULFONAMIDES, ROCEPHIN, MACRODANTIN AND CLINDAMYCIN. CURRENT MEDICATIONS: Synthroid 25 mcg p.o. every morning, sodium chloride 1 gram p.o. daily, vitamin D 1000 unit capsule 2 daily, vitamin B complex 1 daily, calcium 500 mg daily, estradiol 1 tablet every 3 days, Namenda 10 mg b.i.d., ropinirole 3 mg at bedtime, multivitamin 1 daily, Coenzyme Q10 one capsule daily, Myrbetriq 50 mg daily, Nexium 40 mg daily, vitamin B12 1000 mcg liquid injection subQ monthly, Coreg 3.125 mg b.i.d., pravastatin 20 mg at bedtime, Plavix 75 mg a day, aspirin 81 mg a day, Norvasc 2.5 mg daily, lisinopril 2.5 mg daily, MiraLax 1 capful b.i.d., milk of magnesia 30 cc at bedtime and mineral oil 30 cc p.o. daily. FAMILY HISTORY: Unknown. HISTORY AND PHYSICAL [id number] ELLEN DOBBINS REVIEW OF SYSTEMS: GENERAL: Has felt at her baseline. HEAD: No recent fever, visual change or speech disturbance. RESPIRATORY: No severe cough. CARDIAC: No palpitations, PND, orthopnea, or claudication. GASTROINTESTINAL: No nausea or vomiting. She has chronic constipation, chronic lower quadrant abdominal pain, partially relieved with bowel movements. She had negative Gastrografin enema last year. GENITOURINARY: Mild stress incontinence. No dysuria or malodorous urine recently. No hematuria. GYNECOLOGICAL: No vaginal bleeding. NEUROLOGIC: Admits to some trouble with her memory. Denies headache currently or visual change. Transient arm weakness for a fracture that she exhibited has totally resolved at this time. She walks unassisted, but is unsteady and uses a rolling walker. PSYCHIATRIC: Denies depressed mood. PHYSICAL EXAMINATION: VITAL SIGNS: Blood pressure 143/77, respirations are 14, temperature is 97.5, pulse 66 and regular, weight 137 pounds, height is 5 feet 6 inches. HEENT: Normocephalic. Eyes are clear with lens implants noted. Pupils are equal and reactive. EOMI. Accommodation intact. NECK: No bruits appreciated. CHEST: Clear without wheeze or rales. She has increased AP diameter. HEART: Regular without MGR. PMI appropriate. ABDOMEN: Soft, mildly distended with normal bowel sounds. Minimal tenderness in right lower quadrant. No rebound. No masses felt. PELVIC: Deferred. EXTREMITIES: No CC&E. NEUROLOGIC: Oriented to person, place, and time. Cranial nerves are intact. Gait is normal. She has equal strength in her upper extremities with full range of motion. Gsfqzk-qw-ledt is normal. She remembers 1 of 3 objects at 5 minutes. LABORATORY DATA: EKG shows incomplete right bundle branch block, left axis deviation, no acute change. Urinalysis shows many bacteria, nitrite positive. Her TSH is mildly elevated at 4.90. White count 6100, H&H of 12.8 and 40.3, platelet count of 187,000 with normal diff. Sodium is 145, potassium 4.2, BUN 21, creatinine is 1, glucose is 101. Liver functions are normal. IMAGING: CT of the brain shows old left occipital and right frontoparietal CVA with mild encephalomalacia. Her MRI of her cerebral vessels May of 2018 was unremarkable except for tortuosity of the carotid arteries. ASSESSMENT: Apraxia with left upper extremity weakness, i.e., transient ischemic attack resolved, history of prior cerebrovascular accident with negative carotid CTA May of 2018, history of coronary artery disease, hypertension, hyperlipidemia, Alzheimer's dementia, chronic abdominal pain, hypothyroidism, hyponatremia, remote MRSA of lumbar fusion, ijkhb-lb-qmogxoz urinary tract infection, osteoporosis, history of compression fracture of thoracic vertebrae, hiatal hernia with gastroesophageal reflux disease symptoms, remote myocardial infarction, restless leg syndrome, hypothyroidism. PLAN: The patient will be observed on telemetry. We will check MRI of brain HISTORY AND PHYSICAL [id number] ELLEN DOBBINS today to rule out new cerebrovascular accident. We will check bubble echo. Continue aspirin and Plavix at this time. TRANSINT:[id number] Voice Confirmation ID: [id number] DOCUMENT ID: [id number] FABRICE WILBURN MD at 0858 CC: [id number] DICTATION DATE: 03/22/19 08 REGULATORY AFFAIRS INTERNSHIP: 03/22/19 1057 [place] [address]
[2019-03-23 09:15] VITALS: BP 101/69
--- NOTE | 2019-03-23 09:41 | NUR ---
ON DISCHARGE ON INDICATION OF HOW MANY DAYS TO CONTINUE LEVAQUIN. PER DR WILBURN REC 6 DAYS. RX CALLED TO [facility], SPOKE WITH
--- NOTE | 2019-03-23 10:30 | NUR ---
D/C INSTRUCTIONS REVIEWED WITH PT AND NO FURTHER QUESTIONS AT THIS TIME. MONITOR REMOVED AND RETURNED TO BUS REPAIR SUPERVISOR. IV D/C WITH CATHETER TIP INTACT. PT LEFT VIA WHEELCHAIR WITH ALL BELONGINGS.
== END 2019-03-23 12:42 | disposition home or self-care (01) | DRG 65 ==
LOC: D.ER 01:50 → D.M2 04:06 → OBSVTIME 04:06 → D.M2 04:06
PROVIDERS: Emergency Medicine; ADMIT Family Medicine; ATTEND Family Medicine
DX: I63.9 Cerebral infarction, unspecified (principal); N39.0 Urinary tract infection, site not specified; R48.2 Apraxia; G30.9 Alzheimer's disease, unspecified; F02.80 Dementia in other diseases classified elsewhere, unspecified severity, without behavioral disturbance, psychotic disturbance, mood disturbance, and anxiety; G25.81 Restless legs syndrome; K21.9 Gastro-esophageal reflux disease without esophagitis; I10 Essential (primary) hypertension; R40.2363 Coma scale, best motor response, obeys commands, at hospital admission; R40.2143 Coma scale, eyes open, spontaneous, at hospital admission; R40.2243 Coma scale, best verbal response, confused conversation, at hospital admission; Z86.73 Personal history of transient ischemic attack (TIA), and cerebral infarction without residual deficits

== ENCOUNTER → 2019-08-09 08:54 | Outpatient (CLI) | payer MEDICARE, OTHER ==
[2019-03-22 10:40] VITALS: BMI 21.0
[~2019-08-09 08:54] MED LIST changes: +CHRONULAC30 ML PO; +Levaquin PO; +MIRALAX17 GM PO
== END | disposition home or self-care (01) ==
LOC: D.CT 08-07 09:30
PROVIDERS: ATTEND Surgery
DX: R10.31 Right lower quadrant pain (principal); Z98.890 Other specified postprocedural states

== ENCOUNTER 2019-08-13 12:02 | Outpatient (CLI) | payer MEDICARE, OTHER ==
[~2019-08-13] VITALS: Ht 167.6 cm; Wt 59.1 kg
[2019-08-13 13:10] VITALS: BP 142/88; Ht 167.6 cm; Wt 59.1 kg
== END 2019-08-13 13:15 ==
LOC: D.OPS 12:02
PROVIDERS: ATTEND Family Medicine
DX: M81.0 Age-related osteoporosis without current pathological fracture (principal)

== ENCOUNTER 2020-04-29 12:45 | Outpatient (CLI) | payer MEDICARE, OTHER ==
[~2020-04-29] VITALS: Ht 167.6 cm; Wt 56.8 kg
[2020-04-29 14:13] VITALS: BP 132/88; Ht 167.6 cm; Wt 56.8 kg
== END 2020-04-29 14:33 | disposition home or self-care (01) ==
LOC: D.OPS 12:45
PROVIDERS: ATTEND Family Medicine
DX: M81.0 Age-related osteoporosis without current pathological fracture (principal)